=== PATIENT | male | born 1980 | race Two or more races ===

== ENCOUNTER 2020-07-26 09:36 | Emergency (ER) | payer SELFPAY ==
[~2020-07-26] VITALS: Ht 180.3 cm; Wt 83.9 kg
[2020-07-26 09:44] VITALS: BP 142/60
[2020-07-26] MEDS ORDERED: AMOX-430 PO (09:51)
[2020-07-26] MEDS ORDERED: IBUP-1957 PO (09:51)
[2020-07-26] MEDS ORDERED: KETOROLAC TROMETHAMINE INJ 60 MG/2 ML VIAL IM ONE ×2 (09:52→10:00)
--- NOTE | 2020-07-26 09:56 | NUR ---
The patient bibs for c/o swollen throat since monday. Rates pain 09/29. Respiration regular and unlabored. Denies SOB. Will continue to monitor the patient.
--- NOTE | 2020-07-26 10:06 | NUR ---
Patient discharged to home in stable condition. Written and verbal after care instructions given. Patient verbalizes understanding of instruction.
== END 2020-07-26 10:06 | disposition home or self-care (01) ==
LOC: ER 09:43
DX: J02.9 Acute pharyngitis, unspecified (principal); Z91.018 Allergy to other foods
CPT/HCPCS: 96372; 99283; J1885